=== PATIENT | female | born 1965 | race Caucasian/White ===

== ENCOUNTER → 2018-03-16 15:19 | Outpatient (CLI) | payer MEDICAID, SELFPAY ==
--- NOTE | 2018-03-16 15:21 | MM_ITS ---
MM Dig screening mamm BI w/CAD CAD Screening COMPARISON: Digital mammograms with CAD 09/18/2015 and 03/12/2017 INDICATION: There is no personal or family history of breast cancer have been previous biopsies of both breasts for benign disease. TECHNIQUE: Standard CC and MLO images were obtained. R2 CAD reviewed. FINDINGS: Scattered fibroglandular densities are seen in both breast. There is asymmetric glandular density upper central portion of the right breast which shows slight interval change in the borders since the previous exam with subtle architectural distortion apparent. Recommend patient return for follow-up spot compression views and ultrasound for additional evaluation. Otherwise there is no suspicious lesion in either breast and there are no suspicious microcalcifications. IMPRESSION: Fibrofatty parenchyma with possible change in asymmetric glandular density right breast BI-RADS Category: 0 Need Additional Imaging Evaluation RECOMMENDED FOLLOW-UP: IMM - IMMEDIATE FOLLOW-UP RECOMMENDED (A letter has been sent to the patient regarding results of the study.)
== END ==
PROVIDERS: PCP Family Medicine; Visit Provider Nurse Practitioner Obstetrics & Gynecology
DX: Z12.31 Encounter for screening mammogram for malignant neoplasm of breast (principal)
CPT/HCPCS: 77067

== ENCOUNTER → 2018-03-31 13:42 | Outpatient (CLI) | payer MEDICAID, SELFPAY ==
--- NOTE | 2018-03-31 13:43 | MM_ITS ---
MM Dig mamm DX unilat RT CAD Right breast ultrasound with axilla INDICATION: Follow up abnormal screening exam ORDERING PHYSICIAN: Sebastian Washington MD PATIENT AGE: 52 years COMPARISON: 03/16/2018, 03/12/2017 TECHNIQUE: Spot compression views and rolled views of the right breast as well as right breast ultrasound FINDINGS: There is some asymmetric density in the central and upper aspect of the right breast effaces on the CC spot compression view with some residual density superiorly on the MLO spot compression view. There is a persistent 6 mm nodule in the medial aspect of the right breast and 4 mm nodule in the retroareolar region medially. These were present on the older exam. Asymmetric density noted in the medial aspect of the right breast on the spot compression view not redemonstrated on the rolled views. Right breast ultrasound: 8 x 6 mm cyst at the 3:00 region. There some mild ductal ectasia in the retroareolar area. No malignant appearing mass evident. IMPRESSION: No convincing evidence of malignancy. Probably benign findings. BI-RADS Category: 3 Probably Benign Finding Short Term Follow-up RECOMMENDED FOLLOW-UP: 6M - 6 MONTH FOLLOW-UP (A letter has been sent to the patient regarding results of the study.)
== END ==
PROVIDERS: PCP Family Medicine; Visit Provider Nurse Practitioner Obstetrics & Gynecology
DX: R92.2 Inconclusive mammogram (principal)
CPT/HCPCS: 76641; 77065

== ENCOUNTER → 2018-10-12 14:22 | Outpatient (CLI) | payer MEDICAID, SELFPAY ==
--- NOTE | 2018-10-12 14:25 | MM_ITS ---
MM Dig mamm DX unilat RT CAD, US breast RT complete INDICATION: Follow-up abnormal mammogram and ultrasound ORDERING PHYSICIAN: Sebastian Washington MD PATIENT AGE: 53 years COMPARISON: 03/16/2018, 03/31/2018 TECHNIQUE: Diagnostic right mammogram performed along with right breast ultrasound FINDINGS: There is average fibroglandular tissue. Asymmetric density once again noted in the upper aspect of the right breast which is not significantly changed consistent with asymmetric fibroglandular tissue. There is a nodular density involving the medial aspect of the right breast in the periareolar region measuring 4 mm similar to the previous exam. No malignant appearing mass or malignant appearing microcalcification. Right breast ultrasound: There is a 5 x 5 mm cyst at 2:00. Small nodes are present in the axilla. IMPRESSION: Overall no significant change with no evidence of malignancy. Benign findings. No change in the asymmetric density in the superior right breast or the benign-appearing nodule which may represent a cyst. Recommend continue screening mammogram February 2019 BI-RADS Category: 2 Benign Finding(s) RECOMMENDED FOLLOW-UP: 6M - 6 MONTH FOLLOW-UP (A letter has been sent to the patient regarding results of the study.)
== END ==
PROVIDERS: PCP Family Medicine; Visit Provider Nurse Practitioner Obstetrics & Gynecology
DX: R92.8 Other abnormal and inconclusive findings on diagnostic imaging of breast (principal)
CPT/HCPCS: 77065

== ENCOUNTER → 2018-10-14 07:27 | Outpatient (CLI) | payer MEDICAID, SELFPAY | PROVIDERS: PCP Family Medicine; Visit Provider Nurse Practitioner Obstetrics & Gynecology | DX: R92.1 Mammographic calcification found on diagnostic imaging of breast (principal) | CPT/HCPCS: 76641 ==

== ENCOUNTER → 2018-12-09 07:37 | Outpatient (CLI) | payer MEDICAID, SELFPAY ==
[2018-12-09 07:47] LABS: Adenovirus F 40/41, stool Not Detected (NotDetected); Astrovirus Not Detected (NotDetected); Clostridium Difficile A/B, PCR Not Detected (NotDetected); Cryptosporidium Not Detected (NotDetected); Cyclospora Cayetanesis Not Detected (NotDetected); Entamoeba histolytica Not Detected (NotDetected); Enteroaggregative E coli Not Detected (NotDetected); Enteropathogenic E coli Not Detected (NotDetected); Enterotoxigenic E coli Not Detected (NotDetected); Giardia lamblia Not Detected (NotDetected); Norovirus Not Detected (NotDetected); Plesimonas Shigalloides, PCR Not Detected (NotDetected); Rotavirus A Not Detected (NotDetected); Salmonella, PCR Not Detected (NotDetected); Sapovirus Not Detected (NotDetected); Shiga-like toxin E coli Not Detected (NotDetected); Shigella Enterovasive E coli Not Detected (NotDetected); Vibrio Cholerae Not Detected (NotDetected); Vibrio, PCR Not Detected (NotDetected); Yersinia Entercolitica, PCR Not Detected (NotDetected)
[2018-12-09 17:14] LABS: Campylobacter Detected (NotDetected)
== END ==
PROVIDERS: Visit Provider Nurse Practitioner Family
DX: R19.5 Other fecal abnormalities (principal); A04.5 Campylobacter enteritis
CPT/HCPCS: 87177; 87507

== ENCOUNTER → 2018-12-12 14:19 | Outpatient (CLI) | payer MEDICAID, SELFPAY | PROVIDERS: Visit Provider Nurse Practitioner Family | DX: R19.5 Other fecal abnormalities (principal) | CPT/HCPCS: 87177 ==

== ENCOUNTER → 2019-04-11 15:09 | Outpatient (CLI) | payer OTHER, SELFPAY ==
--- NOTE | 2019-04-11 15:09 | MM_ITS ---
PROCEDURE: MM DIG SCREENING MAMM BI W/CAD CLINICAL INDICATION: 6 MOS FU TO RESUME ANNUAL SCHEDULE There is no personal or family history of breast cancer. COMPARISON: [facility] MM Dig screening mamm BI w/CAD from 03/16/2018 DXRT MM Dig mamm DX unilat RT CAD from 03/31/2018 DIG MAMM-DX UNI-RT from 10/12/2018 TECHNIQUE: Standard CC and MLO images were obtained. R2 CAD reviewed. FINDINGS: Moderate diffuse fibroglandular densities are seen in both breasts. Again noted is the asymmetric density upper-outer quadrant right breast which is stable unchanged from previous exams. The small nodular density medial subareolar region right breast is stable unchanged previous exams. There is no suspicious lesion seen and no suspicious microcalcifications. IMPRESSION: Stable exam with no suspicious lesions seen BI-RAD Category: 2 Benign Finding(s) FOLLOW-UP: 1YR 1 Year Follow-up (A letter has been sent to the patient regarding results of the study.) Dictated by: Dr. Gucci Obrien MD 04/13/2019 08:[address] Gucci Obrien MD in [place] 04/13/2019 08:43
== END ==
PROVIDERS: PCP Family Medicine; Referring Provider Nurse Practitioner Obstetrics & Gynecology; Visit Provider Nurse Practitioner Obstetrics & Gynecology
DX: Z12.31 Encounter for screening mammogram for malignant neoplasm of breast (principal)
CPT/HCPCS: 77067

== ENCOUNTER → 2020-02-15 15:42 | Outpatient (CLI) | payer OTHER, SELFPAY ==
--- NOTE | 2020-02-15 15:48 | XR_ITS ---
PROCEDURE: XR KNEE RT 3V CLINICAL INDICATION: INJURY OR RT KNEE Posttraumatic pain COMPARISON: CR [id number] KNEE-3 VIEWS-RT from 03/18/2013 FINDINGS: No fracture or dislocation. No lytic or blastic change. There is normal mineralization. There are mild osteoarthritic changes involving all 3 compartments greater at the medial compartment. Other findings:None. 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
== END ==
PROVIDERS: PCP Family Medicine; Visit Provider Nurse Practitioner Family
DX: S89.91XA Unspecified injury of right lower leg, initial encounter (principal)
CPT/HCPCS: 73562

== ENCOUNTER → 2020-04-02 09:26 | Outpatient (CLI) | payer OTHER, SELFPAY ==
--- NOTE | 2020-04-02 09:30 | MM_ITS ---
PROCEDURE: MM DIG SCREENING MAMM BI W/CAD Digital Breast Tomosynthesis Included CLINICAL INDICATION: screening xmg There is no personal or family history of breast cancer. COMPARISON: MG DXRT MM Dig mamm DX unilat RT CAD from 03/31/2018 MG DIG MAMM-DX UNI-RT from 10/12/2018 MG MM DIG SCREENING MAMM BI W/CAD from 04/11/2019 TECHNIQUE: Standard CC and MLO images and 3D Tomosynthesis was obtained. R2 CAD reviewed. FINDINGS: Scattered fibroglandular densities are seen throughout both breasts. There is a stable benign-appearing nodular density inner quadrant right breast. There are stable focal asymmetric glandular elements central portion right breast. Rashad images reveal no suspicious findings of these asymmetric glandular elements. There are no CAD markings. There are no suspicious microcalcifications. IMPRESSION: Fibrofatty parenchyma with no suspicious lesions seen BI-RAD Category: 2 Benign Finding(s) FOLLOW-UP: 1YR 1 Year Follow-up (A letter has been sent to the patient regarding results of the study.) Dictated by: Dr. Gucci Obrien MD 04/05/2020 08:09 Dr. Gucci Obrien MD in [place] 04/05/2020 08:09
[2020-04-02 17:17] LABS: Microscopic, Urine URINE MICROSCOPIC (MICROSCOPIC)
[2020-04-02 18:48] LABS: Appearance,Urine CLEAR (Clear); Bilirubin,Urine Negative (Negative); Blood, Urine Negative (Negative); Color,Urine YELLOW (Yellow); Glucose,Urine (UA) Negative (Negative); Ketones,Urine Negative (Negative); Leukocyte Esterase,Urine Negative (Negative); Nitrate,Urine Negative (Negative); Protein,Urine Negative (Negative); Specific Gravity, Urine 1.025 (1.005-1.030); Urobilinogen,Urine 0.2 EU/dl (0.2)
== END ==
PROVIDERS: PCP Family Medicine; Visit Provider Nurse Practitioner Obstetrics & Gynecology
DX: Z01.419 Encounter for gynecological examination (general) (routine) without abnormal findings (principal); Z12.31 Encounter for screening mammogram for malignant neoplasm of breast
CPT/HCPCS: 77063; 77067; 81001

== ENCOUNTER → 2021-01-08 17:11 | Outpatient (CLI) | payer OTHER, SELFPAY | PROVIDERS: PCP Family Medicine; Visit Provider Nurse Practitioner | DX: Z20.822 Contact with and (suspected) exposure to COVID-19 (principal) | CPT/HCPCS: C9803; U0003; U0005 ==

== ENCOUNTER → 2021-04-15 15:19 | Outpatient (CLI) | payer BC, OTHER, SELFPAY ==
--- NOTE | 2021-04-15 15:19 | MM_ITS ---
PROCEDURE INFORMATION: Exam: MG Bilateral Screening 3D Mammography Exam date and time: 04/15/2021 3:19 PM Age: 55 years old Clinical indication: Encounter for screening mammogram for malignant neoplasm of breast TECHNIQUE: Imaging protocol: Bilateral screening tomosynthesis and 2D mammography including computer-aided detection (CAD) when performed. COMPARISON: 1. MG MM DIG SCREENING MAMM BI W/CAD 04/02/2020 9:32 AM 2. MG MM DIG SCREENING MAMM BI W/CAD 04/11/2019 3:30 PM FINDINGS: MAMMOGRAPHY: Breast composition: The The breast tissue is composed of scattered areas of fibroglandular density. Mass: None. Architectural distortion: None. Calcifications: No suspicious calcifications. Asymmetric density: None. Skin thickening: None. Axillary adenopathy: None. IMPRESSION: No mammographic evidence of malignancy. Annual screening is recommended unless otherwise clinically indicated. ASSESSMENT: BI-RADS Category 1: Negative
== END ==
PROVIDERS: PCP Family Medicine; Visit Provider Nurse Practitioner Obstetrics & Gynecology
DX: Z12.31 Encounter for screening mammogram for malignant neoplasm of breast (principal)
CPT/HCPCS: 77063; 77067

== ENCOUNTER 2021-07-10 08:59 | Emergency (ER) | payer OTHER, SELFPAY ==
[2021-07-10 09:09] VITALS: BP 134/87; PULSE 70; RESP 16; TEMP 36.6; O2SAT 100; BMI 25.8
--- NOTE | 2021-07-10 09:28 | XR_ITS ---
FINAL REPORT CLINICAL HISTORY: fall, rt rib pain FINDINGS: RIGHT RIBS 3 views of the right ribs show acute right 5th and 6th lateral rib fractures that are mildly displaced. There is no pneumothorax or pleural fluid collection. IMPRESSION: Acute right lateral 5th and 6th rib fractures. No pneumothorax. Reviewed, Interpreted and Dictated by Ray Combs III, MD Transcribed by Tierney Talley Authenticated by Ray Combs III, MD on 07/10/2021 10:01:10 AM [facility]
--- NOTE | 2021-07-10 09:29 | HMH.EDUTC ---
[facility] [place] Disposition Clinical Impression: Ribs, multiple fractures Qualifiers: Encounter type: initial encounter Fracture type: closed Laterality: right Qualified Code(s): S22.41XA - Multiple fractures of ribs, right side, initial encounter for closed fracture Disposition: Home, Self-Care Condition on Discharge: Good Instructions: How to Use an Incentive Spirometer, Rib Fracture, DI for Rib Fracture Additional Instructions: Take Medication for pain as directed Over the counter Lidocaine patches may help with pain and discomfort use as directed on package Follow up with your Family Doctor if needed Straight to ER if any life threatening symptoms Use incentive spirometer as instructed to help with deep breathing Prescriptions: Ketorolac Tromethamine [Toradol 10mg tablet] 10 mg PO Q6HP PRN #20 tab MDD 40mg/day PRN Reason: Moderate Pain Transmission Status: Received by [facility] Referrals: Solo Davey MD [Primary Care Provider] - As needed Forms: Work/School Release Time of Disposition: 10:23 Medical Decision Making - Tejinder Inquiry Pt receiving controlled substance: No Tejinder was queried for this patient: No Vital Signs: 07/10/21 09:09 07/10/21 10:31 Temperature 98 F 98 F Temperature Source Oral Pulse Rate 70 Pulse Rate [Right Brachial] 70 Respiratory Rate 16 18 Blood Pressure 134/87 Blood Pressure [Right Arm] 134/87 Blood Pressure Mean [Right Arm] 102 Blood Pressure Source Automatic Cuff Blood Pressure Source [Right Arm] Automatic Cuff Blood Pressure Position Sitting Blood Pressure Position [Right Arm] Sitting 02 Sat by Pulse Oximetry 100 Oxygen Delivery Method Room Air Room Air Orders (Tests/Meds): ED MEDICATIONS Discontinued Medications Generic Name Dose Route Start Last Admin Trade Name Freq PRN Reason Stop Dose Admin Ketorolac Tromethamine 60 mg 07/10/21 10:04 07/10/21 10:13 Ketorolac 60mg/2ml Vial IM 07/10/21 10:05 60 mg ONCE ONE Administration - Radiology Data #1 Image(s): Chest (right ribs) Image Reviewed: Yes I have reviewed radiologist's interpretation IMPRESSION: Acute right lateral 5th and 6th rib fractures. No pneumothorax. [facility] HPI - General Stated complaint: fall 07/10/21, rib pain Time Seen by Provider: 07/10/21 09:29 Mode of Arrival: Ambulatory Source of Information: Patient Limitations: No Limitations Description of Symptoms (Recalled from Triage Doc. by RN): Patient reports she fell last night over top one of her children. Patient complains of chest and right sided back pain. HEENT Symptoms (Recalled from RN notes): No Resp Symptoms (Recalled from RN notes): No Skin Symptoms (Recalled from RN notes): No MS Symptoms (Recalled from RN notes): Yes Functional Status (Recalled from RN notes): wnl - History of Present Illness Provider Complaint: Patient state that she fell over her foster child last night and landed on her right side State that ever since she has been having pain in her right ribs States that hurts in the front around her right breast area and back when she takes a deep breath or moves certain ways States that today she was still hurting so she came in to get checked - Related Data Previous Rx's Medication Instructions Recorded phentermine 37.5 mg tablet 37.5 mg PO DAILY #30 tab 05/19/21 Ketorolac Tromethamine [Toradol 10 mg PO Q6HP PRN #20 tab MDD 07/10/21 10mg tablet] 40mg/day Allergies Allergy/AdvReac Type Severity Reaction Status Date / Time No Known Allergies Allergy Verified 05/19/21 11:09 - Worker's Comp Is this a Worker's Comp case?: No [facility] History - Hepatitis A Screen Drug use history?: No High risk sexual behaviors?: No History of sexually transmitted infection?: No Currently employed?: No Childcare worker?: No Do you have indoor plumbing?: Yes Do you have electricity?: Yes Attestation statement:: This patient has been screened for Hepatitis A risk fac
[2021-07-10 10:31] VITALS: BP 134/87; PULSE 70; RESP 18; TEMP 36.6; O2SAT 100
== END 2021-07-10 10:33 | disposition home or self-care (01) ==
PROVIDERS: Emergency Provider Nurse Practitioner; PCP Internal Medicine Adolescent Medicine
DX: S22.41XA Multiple fractures of ribs, right side, initial encounter for closed fracture (principal); W01.0XXA Fall on same level from slipping, tripping and stumbling without subsequent striking against object, initial encounter; Y92.019 Unspecified place in single-family (private) house as the place of occurrence of the external cause
CPT/HCPCS: 71101; 96372; 99213; G0463

== ENCOUNTER → 2022-06-06 08:36 | Outpatient (CLI) | payer OTHER, SELFPAY ==
[2022-06-06 08:47] LABS: MANUAL DIFFERENTIAL MANUAL DIFFERENTIAL (MANUAL DIFF)
[2022-06-06 10:02] LABS: Basophils # 0.1 K/mm3 (0-0.2); Basophils % 1.4 % (0.1-2.0); Eosinophils # 0.2 K/mm3 (0.0-0.4); Eosinophils % 3.5 % (0.1-12.0); Hematocrit 40.9 % (37.0-47.0); Hemoglobin 13.6 g/dL (12.2-16.2); Lymphocytes # 1.4 K/mm3 (0.7-4.5); Lymphocytes % 29.3 % (10-50); Mean Corpuscular HGB Conc 33.4 g/dL (31.8-35.4); Mean Corpuscular Hemoglobin 28.5 pg (27.0-31.2); Mean Corpuscular Volume 85.4 fl (81-99); Mean Platelet Volume 7.4 fl (7.4-10.4); Monocytes # 0.2 K/mm3 (0.1-1.0); Monocytes % 4.6 % (1.7-9.3); Neutrophils # 2.8 K/mm3 (1.8-7.8); Neutrophils % 61.3 % (37.0-80.0); Platelet Count 234 K/mm3 (142-424); Red Blood Count 4.79 M/mm3 (4.20-5.40); Red Cell Distribution Width 14.3 % (11.5-17.5); White Blood Count 4.6 K/mm3 (4.8-10.8)
[2022-06-06 10:19] LABS: Alanine Aminotransferase 26 U/L (12-78); Albumin Level 4.6 g/dl (3.5-5.0); Albumin/Globulin Ratio 1.8 (1.1-1.8); Alkaline Phosphatase 70 U/L (38-126); Anion Gap 10.5 mEq/L (5-15); Aspartate Amino Transferase 27 U/L (14-36); Bilirubin,Total 0.5 mg/dl (0.2-1.3); Blood Urea Nitrogen 13 mg/dl (7-17); Calcium 9.3 mg/dl (8.4-10.2); Carbon Dioxide 28 mmol/L (22.0-30.0); Chloride 108 mmol/L (98-107); Chol/HDL Ratio 4.3 (1-3.5); Cholesterol 137 mg/dl (140-200); Estimated Glomerular Filt Rate 58 ml/min (>60); GFR (African American) 70 ML/MIN (>60); Globulin 2.6 g/dL (1.3-3.2); Glucose 89 mg/dl (74-100); HDL Cholesterol 32 mg/dl (40-60); Potassium 4.5 mmoL/L (3.5-5.1); Sodium 142 mmol/L (136-145); Total Protein,Serum 7.2 g/dl (6.3-8.2); Triglycerides 201 mg/dl (30-150); VLDL Cholesterol 40 mg/dL (0-40)
[2022-06-06 10:29] LABS: Direct LDL Cholesterol 66.82 mg/dL (100-129)
[2022-06-06 11:02] LABS: Lymphocytes % 17 % (10-50); Monocytes % 3 % (2-9); Neutrophils % 80 % (42-76); Platelet Estimate Normal; RBC Morphology Normal; Total Cells Counted 100
== END ==
PROVIDERS: PCP Family Medicine; Visit Provider Nurse Practitioner Obstetrics & Gynecology
DX: Z00.00 Encounter for general adult medical examination without abnormal findings (principal)
CPT/HCPCS: 36415; 80053; 80061; 85007; 85014; 85018; 85048; 85049

== ENCOUNTER → 2022-06-29 16:16 | Outpatient (CLI) | payer OTHER, SELFPAY ==
--- NOTE | 2022-06-29 16:21 | XR_ITS ---
PROCEDURE INFORMATION: Exam: XR Chest Exam date and time: 06/29/2022 4:23 PM Age: 57 years old Clinical indication: Patient HX: Persistent severe cough for 2 weeks. Patient's md has tried multiple prescription cough medications with no resolution of symptoms. Non-smoker, no chest surgeries. ; Additional info: Acute cough TECHNIQUE: Imaging protocol: Radiologic exam of the chest. Views: 2 views. COMPARISON: CR XR RIBS RT MIN 3V W CXR1V 07/10/2021 9:30 AM FINDINGS: Lungs: Calcified hilar lymph nodes. Pleural spaces: Unremarkable. No pleural effusion. No pneumothorax. Heart/Mediastinum: Unremarkable. No cardiomegaly. Bones/joints: Multiple chronic right rib fractures. IMPRESSION: No evidence of acute cardiopulmonary disease.
== END ==
PROVIDERS: PCP Physician Assistant; Visit Provider Physician Assistant
DX: R05.1 Acute cough (principal)
CPT/HCPCS: 71046